=== PATIENT | male | born 1955 | race Caucasian/White ===

== ENCOUNTER 2022-05-06 14:17 | Emergency (ER) | payer BC | END 2022-05-06 16:28 | disposition home or self-care (01) | LOC: MW.ED 14:17 | DX: U07.1 COVID-19 (principal); J02.9 Acute pharyngitis, unspecified; E03.9 Hypothyroidism, unspecified; Z79.899 Other long term (current) drug therapy; Z86.16 Personal history of COVID-19 | CPT/HCPCS: 87651-QW; 99283 ==